=== PATIENT | male | born 1975 | race Caucasian/White ===

== ENCOUNTER 2016-11-20 10:24 | Emergency (ER) | payer MEDICARE ==
[~2016-11-20] VITALS: Ht 185.4 cm; Wt 70.4 kg
[2016-11-20 10:26] VITALS: BP 134/82
[2016-11-20] MEDS ORDERED: IBUPROFEN 200 MG TABLET PO ONE (11:00)
[2016-11-20] MEDS ORDERED: IBUPROFEN 200 MG TABLET ONE (11:05)
== END 2016-11-20 11:54 | disposition home or self-care (01) ==
LOC: ED 11:36
DX: S60.512A Abrasion of left hand, initial encounter (principal); W01.0XXA Fall on same level from slipping, tripping and stumbling without subsequent striking against object, initial encounter; Y93.01 Activity, walking, marching and hiking; Y92.410 Unspecified street and highway as the place of occurrence of the external cause; Y99.9 Unspecified external cause status
CPT/HCPCS: 99284